=== PATIENT | female | born 1955 | race Caucasian/White ===

== ENCOUNTER 2019-02-18 08:09 | Emergency (ER) | payer OTHER ==
[~2019-02-18] VITALS: Ht 170.2 cm; Wt 61.4 kg
--- NOTE | 2019-02-18 08:36 | NUR ---
First contact with pt. Pt c/o L flank pain with N/V x2 days. Pt denies diarrhea or dysuria. Pt placed in gown, positioned for comfort in bed. Continuous oxygen and BP monitors applied, all safety measures observed. Pt ambulatory to bathroom to attempt to collect urine sample with steady gait.
[2019-02-18 08:51] LABS: BASOPHILS # (AUTO) 0.02 x10^3/uL (0-0.1); BASOPHILS % (AUTO) 0 % (0-1); EOSINOPHILS % (AUTO) 0 % (1-7); LYMPHOCYTES # (AUTO) 1.09 x10^3/uL (1-3.4); LYMPHOCYTES % (AUTO) 12 % (22-44); MD NO; MEAN CORPUSCULAR HEMOGLOBIN 31.2 pg (27.0-34.8); MEAN CORPUSCULAR HGB CONC 33.2 g/dL (32.4-35.8); MEAN PLATELET VOLUME 8.4 fL (7.4-10.4); MONOCYTES # (AUTO) 0.32 x10^3/uL (0.2-0.8); MONOCYTES % (AUTO) 4 % (2-9); NEUTROPHILS # (AUTO) 7.43 x10^3/uL (1.8-6.8); NEUTROPHILS % (AUTO) 84 % (42-75); PLATELET COUNT 191 x10^3/uL (130-400); RED BLOOD COUNT 5.11 x10^6/uL (3.82-5.3); RED CELL DISTRIBUTION WIDTH 13.1 % (9.6-15.2)
[2019-02-18] MEDS ORDERED: KETOROLAC 30 MG/1 ML ONE (08:54)
[2019-02-18] MEDS ORDERED: ONDANSETRON ODT 4 MG ONE (08:54)
--- NOTE | 2019-02-18 08:59 | NUR ---
Pt medicated per NOV, to CT via awlter.
[2019-02-18] MEDS ORDERED: KETOROLAC 30 MG/1 ML IM ONE (09:00)
[2019-02-18] MEDS ORDERED: ONDANSETRON ODT 4 MG PO ONE (09:00)
[2019-02-18 09:03] LABS: ALANINE AMINOTRANSFERASE 27 U/L (12-78); ALBUMIN 4.4 g/dL (3.4-5.0); ANION GAP 11 mmol/L (5-15); CALCIUM 8.7 mg/dL (8.5-10.1); CHLORIDE 96 mmol/L (98-107); CREATININE 0.69 mg/dL (0.55-1.02)
[2019-02-18 09:05] LABS: ALKALINE PHOSPHATASE 129 U/L (45-117); BILIRUBIN,TOTAL 0.5 mg/dL (0.2-1.0); TOTAL PROTEIN 7.7 g/dL (6.4-8.2)
[2019-02-18 09:11] LABS: MICROSCOPIC INDICATED
[2019-02-18 09:21] LABS: CULTURE INDICATED? NO
--- NOTE | 2019-02-18 09:26 | NUR ---
Pt resting in bed looking at her phone. Pt states pain improved after medication but not fully gone, 03/23. Pt denies other needs.
[2019-02-18] MEDS ORDERED: SODIUM CHLORIDE 0.9% 1,000ML IVBOLUS ONE (09:30)
[2019-02-18] MEDS ORDERED: SODIUM CHLORIDE FLUSH 10ML SYR IVF ONE (09:30)
--- NOTE | 2019-02-18 09:51 | NUR ---
IV access obtained, IVF initiated per order. Pt continues resting in bed, NADN.
--- NOTE | 2019-02-18 10:10 | NUR ---
Pt given warm blanket per request. Pt requesting additional pain medication.
[2019-02-18] MEDS ORDERED: METHOCARBAMOL 750 MG TABLET PO ONE (10:30)
[2019-02-18] MEDS ORDERED: METHOCARBAMOL 750 MG TABLET ONE (10:35)
--- NOTE | 2019-02-18 10:38 | NUR ---
Pt medicated per MAR, denies other needs.
--- NOTE | 2019-02-18 11:24 | NUR ---
TASK RN: FIRST CONTACT WITH PT: Patient given discharge instructions and they have confirmed that they understand the instructions. Patient ambulatory with steady gait. Pt left with d/c paperwork, presciptions, and all personal belongings.
[2019-02-18 11:26] VITALS: BP 153/83
== END 2019-02-18 11:28 | disposition home or self-care (01) ==
LOC: ED 09:28
DX: E86.0 Dehydration (principal); E87.1 Hypo-osmolality and hyponatremia; R10.9 Unspecified abdominal pain; R11.2 Nausea with vomiting, unspecified; Z90.710 Acquired absence of both cervix and uterus
CPT/HCPCS: 36415; 74176; 80053; 81001; 83690; 85025; 96360; 96372; 99284; J1885; J7030

== ENCOUNTER 2019-02-26 06:37 | Emergency (ER) | payer OTHER ==
[~2019-02-26] VITALS: Ht 170.2 cm; Wt 59.8 kg
--- NOTE | 2019-02-26 07:00 | NUR ---
PT HERE FOR LEFT LOWER BACK PAIN THAT RADIATES DOWN LEFT LEG. PT WAS LIFTING POT WHILE GARDENING. PAIN HAS BEEN GOING ON FOR A WEEK. PT STATES SHE WAS SEEN HERE FOR THE SAME THING ABOUT A WEEK AGO AND HAD NO RELIEF. PT AAO X 4, C/O BACK PAIN THAT RADIATES DOWN LEFT LEG. PT RESTING IN GURNEY, DRESSED IN GOWN, SIDERAILS UP IN PLACE X 2, CALL LIGHT WITHIN REACH.
[2019-02-26] MEDS ORDERED: PHEN100C PO (07:21)
[2019-02-26] MEDS ORDERED: DIAZEPAM 5 MG/ML, 2ML IVPush ONE (07:30)
[2019-02-26] MEDS ORDERED: methylPREDNISolone SOD SUCC 125 MG/2 ML IVPush ONE (07:30)
[2019-02-26] MEDS ORDERED: SODIUM CHLORIDE FLUSH 10ML SYR IVF ONE (07:30)
[2019-02-26] MEDS ORDERED: HYDROmorphone 2 MG/ML, 1ML IVPush PRN (07:30)
[2019-02-26] MEDS ORDERED: HYDROmorphone 2 MG/ML, 1ML ONE (07:35)
[2019-02-26] MEDS ORDERED: methylPREDNISolone SOD SUCC 125 MG/2 ML ONE (07:35)
[2019-02-26] MEDS ORDERED: DIAZEPAM 5 MG/ML, 2ML ONE (07:36)
[2019-02-26 08:10] LABS: BASOPHILS # (AUTO) 0.02 x10^3/uL (0-0.1); BASOPHILS % (AUTO) 1 % (0-1); EOSINOPHILS # (AUTO) 0.02 x10^3/uL (0-0.4); EOSINOPHILS % (AUTO) 1 % (1-7); LYMPHOCYTES % (AUTO) 28 % (22-44); MD NO; MEAN CORPUSCULAR HEMOGLOBIN 31.1 pg (27.0-34.8); MEAN CORPUSCULAR HGB CONC 32.9 g/dL (32.4-35.8); MEAN CORPUSCULAR VOLUME 94.4 fL (80-100); MEAN PLATELET VOLUME 8.5 fL (7.4-10.4); MONOCYTES # (AUTO) 0.45 x10^3/uL (0.2-0.8); MONOCYTES % (AUTO) 10 % (2-9); NEUTROPHILS # (AUTO) 2.88 x10^3/uL (1.8-6.8); NEUTROPHILS % (AUTO) 62 % (42-75); PLATELET COUNT 195 x10^3/uL (130-400); RED BLOOD COUNT 4.69 x10^6/uL (3.82-5.3); RED CELL DISTRIBUTION WIDTH 12.8 % (9.6-15.2)
--- NOTE | 2019-02-26 08:12 | NUR ---
Note [email or web address] in EDM - 02/26/19 at 0821 by DEYSI PT HERE FOR LEFT LOWER BACK PAIN THAT RADIATES DOWN LEFT LEG. PT WAS LIFTING POT WHILE GARDENING. PAIN HAS BEEN GOING ON FOR A WEEK. PT STATES SHE WAS SEEN HERE FOR THE SAME THING ABOUT A WEEK AGO AND HAD NO RELIEF. PT AAO X 4, C/O BACK PAIN THAT RADIATES DOWN LEFT LEG. PT RESTING IN [employer], DRESSED IN GOWN, SIDERAILS UP IN PLACE X 2, CALL LIGHT WITHIN REACH.
[2019-02-26 08:18] LABS: ALBUMIN 4.4 g/dL (3.4-5.0); ANION GAP 9 mmol/L (5-15); CALCIUM 9.1 mg/dL (8.5-10.1); CHLORIDE 101 mmol/L (98-107); CREATININE 0.66 mg/dL (0.55-1.02)
--- NOTE | 2019-02-26 08:20 | NUR ---
PT TO MRI.
[2019-02-26 08:43] LABS: MICROSCOPIC NOT IND
[2019-02-26 08:47] LABS: CULTURE INDICATED? NO
[2019-02-26] MEDS ORDERED: GADOBUTROL 7.5 MMOL/7.5 ML PFS ONE (09:15)
--- NOTE | 2019-02-26 09:25 | NUR ---
PT BACK FROM MRI. PT AAO X 4, ROOM AIR, RESTING COMFORTABLY IN RNEY WITH ALL FALL PRECAUTIONS IN PLACE.
--- NOTE | 2019-02-26 10:32 | NUR ---
PT AAO X 4, ROOM AIR, RESTING COMFORTABLY IN RFLINT WITH ALL FALL PRECAUTIONS IN PLACE.
--- NOTE | 2019-02-26 10:38 | NUR ---
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
--- NOTE | 2019-02-26 11:08 | NUR ---
PT AMBULATORY WITH STEADY GAIT TO RESTROOM. VSS. PT AAO X 4. FALL PRECUATIONS IN PLACE.
[2019-02-26 11:56] VITALS: BP 136/77
== END 2019-02-26 11:59 | disposition home or self-care (01) ==
LOC: ED 09:55
DX: M54.42 Lumbago with sciatica, left side (principal); M51.26 Other intervertebral disc displacement, lumbar region; Z90.710 Acquired absence of both cervix and uterus
CPT/HCPCS: 36415; 72158; 80048; 81003; 82040; 85025; 96374; 96375; 99284; A9585; J1170; J2930; J3360